=== PATIENT | female | born 1980 | race Two or more races ===

== ENCOUNTER 2019-01-21 21:05 | Emergency (ER) | payer SELFPAY ==
[~2019-01-21] VITALS: Ht 167.6 cm; Wt 59.2 kg
[2019-01-21] MEDS ORDERED: PROCHLORPERAZINE 5 MG/ML, 2ML ONE (21:42)
[2019-01-21] MEDS ORDERED: KETOROLAC 30 MG/1 ML ONE (21:42)
[2019-01-21] MEDS ORDERED: DIPHENHYDRAMINE 25 MG CAPSULE ONE (21:42)
[2019-01-21 21:48] LABS: BASOPHILS # (AUTO) 0.03 x10^3/uL (0-0.1); BASOPHILS % (AUTO) 0 % (0-1); EOSINOPHILS # (AUTO) 0.01 x10^3/uL (0-0.4); EOSINOPHILS % (AUTO) 0 % (1-7); LYMPHOCYTES % (AUTO) 12 % (22-44); MD NO; MEAN CORPUSCULAR HEMOGLOBIN 28.9 pg (27.0-34.8); MEAN CORPUSCULAR HGB CONC 32.9 g/dL (32.4-35.8); MEAN CORPUSCULAR VOLUME 87.8 fL (80-100); MEAN PLATELET VOLUME 7.7 fL (7.4-10.4); MONOCYTES # (AUTO) 0.69 x10^3/uL (0.2-0.8); MONOCYTES % (AUTO) 12 % (2-9); NEUTROPHILS # (AUTO) 4.35 x10^3/uL (1.8-6.8); NEUTROPHILS % (AUTO) 75 % (42-75); PLATELET COUNT 200 x10^3/uL (130-400); RED BLOOD COUNT 4.39 x10^6/uL (3.82-5.3); RED CELL DISTRIBUTION WIDTH 13.1 % (9.6-15.2)
[2019-01-21 21:57] LABS: ALBUMIN 3.3 g/dL (3.4-5.0); ANION GAP 6 mmol/L (5-15); CALCIUM 9.1 mg/dL (8.5-10.1); CHLORIDE 104 mmol/L (98-107); CREATININE 0.63 mg/dL (0.55-1.02)
[2019-01-21] MEDS ORDERED: SODIUM CHLORIDE 0.9% 1,000ML IVBOLUS ONE (22:00)
[2019-01-21] MEDS ORDERED: DIPHENHYDRAMINE 25 MG CAPSULE PO ONE (22:00)
[2019-01-21] MEDS ORDERED: KETOROLAC 30 MG/1 ML IVPush ONE (22:00)
[2019-01-21] MEDS ORDERED: PROCHLORPERAZINE 5 MG/ML, 2ML IVPush ONE (22:00)
--- NOTE | 2019-01-21 22:01 | NUR ---
INST ON THE NEED FOR A UA.
--- NOTE | 2019-01-21 22:01 | NUR ---
FULLY MONITORED: SR. PAIN IS EPIGASTRIC RELATED.
[2019-01-21 22:02] LABS: RAPID INFLUENZA A Negative (Negative); RAPID INFLUENZA B Negative (Negative)
[2019-01-21 22:27] VITALS: BP 122/60
--- NOTE | 2019-01-21 22:27 | NUR ---
CC UA COLLECTED AND SENT TO THE LAB.
[2019-01-21 22:35] LABS: MICROSCOPIC AUTO
[2019-01-21 22:37] LABS: CULTURE INDICATED? YES
[2019-01-21] MEDS ORDERED: CEFDINIR 300 MG CAPSULE ONE (22:52)
[2019-01-21] MEDS ORDERED: CEFDINIR 300 MG CAPSULE PO ONE (23:00)
== END 2019-01-21 23:12 | disposition home or self-care (01) ==
LOC: ED 22:14
DX: N30.00 Acute cystitis without hematuria (principal); R51 Headache; R11.2 Nausea with vomiting, unspecified; R06.02 Shortness of breath; R05 Cough; R10.9 Unspecified abdominal pain; M79.10 Myalgia, unspecified site
CPT/HCPCS: 36415; 71045; 80048; 81001; 82040; 85025; 87077; 87086; 87400; 93005; 96361; 96374; 96375; 99284; J0780; J1885; J7030; Q0163; 87186